=== PATIENT | female | born 1955 | race American Indian/Alaskan Native ===

== ENCOUNTER 2017-08-22 11:35 | Emergency (ER) | payer BC, OTHER ==
[2017-08-22 12:04] VITALS: BMI 32.1
--- NOTE | 2017-08-22 13:46 | RAD ---
Chest x-ray single frontal view History: Shortness of breath. Comparison: None available. Findings: No focal infiltrate or effusion. Right apical pleural thickening. Heart size within normal limits. Impression: No focal infiltrate or effusion.
[2017-08-22 14:17] LABS: BASO % 0.8 % (0.0-2.0); EOS % 0.6 % (0.0-4.0); HEMOGLOBIN 13.7 g/dL (11.0-16.0); LYMPH # 1.8 K/uL (1.0-4.3); LYMPH % 35.1 % (20.0-40.0); MEAN CELL VOLUME 89.3 fL (81.0-99.0); MEAN CORPUSCULAR HEMOGLOBIN 30.5 pg (27.0-31.0); MEAN CORPUSCULAR HGB CONC 34.2 g/dL (33.0-37.0); MEAN PLATELET VOLUME 8.4 fL (7.2-11.7); MONO # 0.4 K/uL (0.0-0.8); MONO % 8.3 % (0.0-10.0); NEUT # 2.8 K/uL (1.8-7.0); NEUT % 55.2 % (50.0-75.0); RBC 4.48 Mil/uL (3.80-5.20); RED CELL DISTRIBUTION WIDTH 14.4 % (11.5-14.5); WHITE BLOOD COUNT 5.1 K/uL (4.8-10.8)
[2017-08-22 14:30] LABS: ALB/GLOB RATIO 1.2 (1.0-2.1); ALBUMIN 4.3 g/dL (3.5-5.0); ALT/SGPT 30 U/L (9-52); AST/SGOT 25 U/L (14-36); BLOOD UREA NITROGEN 9 mg/dL (7-17); CALCIUM 9.8 mg/dl (8.6-10.4); GFR AFRICAN-AMERICAN > 60; GFR NON-AFRICAN AMERICAN > 60
[2017-08-22 14:44] VITALS: O2SAT 100
[2017-08-22] MEDS ORDERED: DiphenhydrAMINE 50 mg/ml Inj IVP STA (14:48)
[2017-08-22] MEDS ORDERED: Sodium Chloride 0.9% 1,000 ML IV ONE (14:48)
[2017-08-22] MEDS ORDERED: DiphenhydrAMINE 50 mg/ml Inj ONE (16:06)
[2017-08-22] MEDS ORDERED: Sodium Chloride 0.9% 1,000 ML ONE (16:06)
--- NOTE | 2017-08-22 17:04 | C.PDOC ---
History Of Present Illness 62-year-old female, presents to the emergency department stating that over the past several days, she has been feeling dizziness which she is unable to describe, and is associated with feeling of shortness of breath and chest pain, for the past week. Patient states that her dizziness worsened while at physical therapy today, prompting her visit to ED for evaluation. She denies fever, cough , numbness/weakness, nausea/vomiting or any other associated symptoms. No other complaints at this time. Time Seen by Provider: 08/22/17 12:34 Chief Complaint (Nursing): Chest Pain History Per: Patient History/Exam Limitations: no limitations Onset/Duration Of Symptoms: Days Current Symptoms Are (Timing): Still Present Past Medical History Reviewed: Historical Data, Nursing Documentation, Vital Signs Vital Signs: Last Vital Signs Temp 98.3 F 08/22/17 17:24 Pulse 68 08/22/17 17:24 Resp 20 08/22/17 17:24 BP 140/73 08/22/17 17:24 Pulse Ox 100 08/22/17 18:52 - Medical History PMH: Asthma (never takes meds), Diabetes, Gastritis, HTN, Hypercholesterolemia, Seizures - [facility] Procedures CLOSED ENDOSCOPIC BIOPSY OF LARGE INTESTINE (06/29/01) LAPAROSCOP LYSIS-PERITONEAL ADHES (07/19/01) LAPAROSCOP UNILAT SALPINGO-OOPHORECTOMY (07/19/01) OTHER LOCAL DESTRUC SKIN (09/24/99) Family History: States: No Known Family Hx - Social History Hx Tobacco Use: No Hx Alcohol Use: No Hx Substance Use: No - Immunization History Hx Tetanus Toxoid Vaccination: No Hx Influenza Vaccination: Yes Hx Pneumococcal Vaccination: No Review Of Systems Except As Marked, All Systems Reviewed And Found Negative. Constitutional: Negative for: Fever, Weakness, Malaise Cardiovascular: Positive for: Chest Pain. Negative for: Palpitations Respiratory: Positive for: Shortness of Breath Gastrointestinal: Negative for: Nausea, Vomiting, Abdominal Pain Musculoskeletal: Negative for: Neck Pain, Back Pain Neurological: Positive for: Dizziness. Negative for: Weakness, Numbness, Headache Physical Exam - Physical Exam Appears: Non-toxic, No Acute Distress Skin: Warm, Dry, No Rash Head: Atraumatic, Normacephalic Eye(s): bilateral: Normal Inspection, PERRL, EOMI Ear(s): Bilateral: Normal Nose: Normal Oral Mucosa: Moist Lips: Normal Appearing Throat: No Erythema, No Exudate Neck: Normal ROM, Supple Chest: Symmetrical Cardiovascular: Rhythm Regular, No Friction Rub, No Murmur Respiratory: Normal Breath Sounds, No Accessory Muscle Use Gastrointestinal/Abdominal: Soft, No Tenderness Back: Normal Inspection, No CVA Tenderness, No Vertebral Tenderness, No Paraspinal Tenderness Extremity: Normal ROM, No Swelling Neurological/Psych: Oriented x3, Normal Speech, Normal Motor Gait: Steady ED Course And Treatment - Laboratory Results Result Diagrams: 08/22/17 14:09 08/22/17 14:09 ECG: Interpreted By Me, Viewed By Me ECG Rhythm: Sinus Rhythm Rate From EC O2 Sat by Pulse Oximetry: 100 (RA) Pulse Ox Interpretation: Normal Medical Decision Making Medical Decision Making: Plan: * EKG * CMP, Trop * CBC, D-Dimer * Chest X-Ray * Benadryl, Reglan, IVFs * Reassess and Disposition On re-exam, the patient reports improvement of symptoms. Lungs are CTA, heart is RRR, abdomen is soft, non-tender and patient is tolerating PO well. Ambulatory in the ED with steady gait. Follow up with the medical doctor/clinic 1-2 days. Return if worsened. Disposition - Disposition Referrals: Arturo Phillips MD [Medical Doctor] - Disposition: HOME/ ROUTINE Disposition Time: 17:17 Condition: GOOD Additional Instructions: Follow up with the medical doctor/clinic 1-2 days. Return if worsened. Prescriptions: Metoclopramide [Reglan] 1 tab PO TID PRN #25 tab PRN Reason: Nausea/Vomiting Instructions: Dizziness (ED) Forms: [employer] (Irish) - Clinical Impression Clinical Impression: Chest discomfort, Dizziness - Scribe Statement The provider has reviewed the documentation as recorded by the Scribe (Yelena Schultz) All medical record entries made by the Scribe were at my direction and personally dictated by me. I have reviewed the chart and agree that the record accurately reflects my personal performance of the history, physical exam, medical decision making, and the department course for this patient. I have also personally directed, reviewed, and agree with the discharge instructions and disposition.
[2017-08-22 17:25] VITALS: BP 140/73; PULSE 68; RESP 20; TEMP 98.3
--- NOTE | 2017-08-24 16:35 | CARD ---
APPROVED REPORT EKG Measurement Heart [id number] <Conclusion> Normal sinus rhythm Normal ECG
== END 2017-08-22 18:02 | disposition home or self-care (01) ==
LOC: C.ER 11:35
DX: R42 Dizziness and giddiness (principal); R07.89 Other chest pain
CPT/HCPCS: 71045; 80053; 84484; 85025; 85378; 93005; 96361; 96374; 99285; J2765; J7040

== ENCOUNTER 2017-12-02 06:18 | Day surgery (SDC) | payer OTHER, BC ==
--- NOTE | 2017-12-02 07:19 | CP.PCM.CON ---
History of Present Illness - History of Present Illness History of Present Illness: Pt is a 62 yo f scheduled for shoulder sx with radha hernandez presents with peristent cough. As per the pt, shes had a cough for a week + congestion. Denies fever/n/v. Pt reports everyone in her household is sick. She was evaluated by her PCP who prescribed z-pack and promethazine, however she was unable to finish abx. At this time, procedure will be rescheduled. Pt will follow up with PCP prior to re-scheduling. Past Patient History - Past Medical History & Family History Past Medical History?: Yes - Past Social History Smoking Status: Never Smoked - CARDIAC Hx Hypercholesterolemia: Yes Hx Hypertension: Yes - PULMONARY Hx Respiratory Disorders: Yes Hx Asthma: Yes (20 yrs. ago. No longer on med.) - NEUROLOGICAL Hx Neurological Disorder: Yes Hx Dizziness: Yes Other/Comment: Had episode of dizziness om 08/22/17. Was seen in ED with no significant findings. - HEENT Hx HEENT Problems: No - RENAL Hx Chronic Kidney Disease: No - ENDOCRINE/METABOLIC Hx Endocrine Disorders: Yes Hx Diabetes Mellitus Type 2: Yes - HEMATOLOGICAL/ONCOLOGICAL Hx Blood Disorders: No - INTEGUMENTARY Hx Dermatological Problems: Yes Other/Comment: Mass left breast - MUSCULOSKELETAL/RHEUMATOLOGICAL Hx Musculoskeletal Disorders: Yes (RIGHT SHOULDER IMPINGEMENT) Other/Comment: Left Rotator cuff repair - GASTROINTESTINAL Hx Gastrointestinal Disorders: Yes Hx Gastritis: Yes - GENITOURINARY/GYNECOLOGICAL Hx Genitourinary Disorders: Yes (HX FIBROID UTERUS) - PSYCHIATRIC Hx Psychophysiologic Disorder: No Hx Substance Use: No - SURGICAL HISTORY Hx Surgeries: Yes Hx Breast Biopsy: Yes (Left breast) Hx Hysterectomy: Yes Hx Orthopedic Surgery: Yes (Left rotator cuff repair) Hx Tubal Ligation: Yes Other/Comment: lt breat lumpectomy - ANESTHESIA Hx Anesthesia: Yes Hx Anesthesia Reactions: Yes (VOMITTING) Hx Malignant Hyperthermia: No Has any member of the family had a problem w/ anesthesia?: No Meds Allergies/Adverse Reactions: Allergies Allergy/AdvReac Type Severity Reaction Status Date / Time codeine Allergy Intermediate RASH Verified 08/22/17 11:47 meperidine [From Demerol] Allergy Intermediate RASH Verified 08/22/17 11:47 Penicillins Allergy Intermediate RASH Verified 08/22/17 11:47 Sulfa (Sulfonamide Allergy Intermediate RASH Verified 08/22/17 11:47 Antibiotics)
== END 2017-12-02 08:15 | disposition home or self-care (01) ==
LOC: C.SDS 06:18
PROVIDERS: ATTEND Student in an Organized Health Care Education/Training Program
DX: Z53.8 Procedure and treatment not carried out for other reasons (principal); S46.811D Strain of other muscles, fascia and tendons at shoulder and upper arm level, right arm, subsequent encounter; S43.431D Superior glenoid labrum lesion of right shoulder, subsequent encounter; M75.31 Calcific tendinitis of right shoulder; M75.41 Impingement syndrome of right shoulder; M75.21 Bicipital tendinitis, right shoulder

== ENCOUNTER 2018-01-06 05:45 | Day surgery (SDC) | payer OTHER, BC ==
[2018-01-06] MEDS ORDERED: Midazolam 2 MG/2 ML VIAL ONE (08:04)
[2018-01-06] MEDS ORDERED: Propofol 10 mg/ml Inj (20 ML) ONE (08:04)
[2018-01-06] MEDS ORDERED: Succinylcholine Chloride 20 mg/ml Syr (5 ml) IV ONE (08:05)
[2018-01-06] MEDS ORDERED: Rocuronium 10 mg/ml (5 ml) ONE ×2 (08:05→09:57)
[2018-01-06] MEDS ORDERED: Clindamycin 600mg/50ml NS 0 MG/0 ML BAG IVPB ONE (08:06)
[2018-01-06] MEDS ORDERED: Neostigmine Methylsulfate 3mg/3ml Syringe IV ONE ×2 (11:14→11:28)
[2018-01-06] MEDS: HYDROmorphone 0.5 mg/0.5 ml ISec IVP PRN ×3 (11:57→12:57)
[2018-01-06] MEDS ORDERED: Bupivacaine HCl 0.5% PF (30 ml) Inj ONE (12:53)
[2018-01-06] MEDS ORDERED: Lactated Ringer's 1,000 ML IV ONE (13:00)
--- NOTE | 2018-01-06 13:14 | PCM.ANESB1 ---
Interscalene Block - Brachial Plexus Date of Procedure: 01/06/18 Anesthesiologist: Susanne Pre-Procedure Diagnosis: Right labral tear Post-Procedure Diagnosis: Right labral afua Procedure Performed: Interscalene Block of Brachial Plexus Right - Procedure Interscalene Block of Brachial Plexus: This procedure was explained to the patient that it is for post-operative pain management. Consent was obtained after a thorough discussion with the patient regarding the benefits and possible complications of local anesthetic block of the Brachial Plexus at the Interscalene area. The patient was brought to the Operating Room and standard monitors were applied. Time out was held with the circulating nurse to confirm the correct surgery and appropriate block. After applying Oxygen by nasal cannula and administering IV Sedation, the patient's head was gently rotated away from the operative shoulder and the anterior scalene groove was carefully palpated. The ultrasound transducer was then applied to the skin in the transverse plane and the brachial plexus was visualized lateral to the carotid artery and in between the anterior and middle scalene muscles. After identification,the anterior lateral portion of the neck was prepped with Betadine solution three times and Lidocaine 1% was injected subcutaneously for topical analgesia. At this point, a # 22 gauge Stimuplex 2 inches insulated needle was inserted into the interscalene groove and directed in a caudal and midline direction. The needle was inserted lateral to the ultrasound transducer in-plane towards the brachial plexus in a [id number] direction. Needle advancement was performed carefully under direct ultrasound visualization. After repeated negative aspiration, 20 mL of 0.25% bupivicaine were injected. Under ultrasound guidance the local anesthetics were observed surrounding the roots of the brachial plexus. The needle was removed intact and sterile dressing was applied. The patient had stable vital signs, was conscious and in no apparent distress. The patient tolerated the interscalene block of the bracheal plexus well with stable vital signs
[2018-01-06 20:30] VITALS: RESP 20
[2018-01-06] MEDS: Dextrose 5%/0.9% NS 1,000 ML IV SCH (21:48)
[2018-01-07] MEDS: Dextrose 5%/0.9% NS 1,000 ML IV SCH (08:16)
[2018-01-07 08:29] VITALS: BP 134/79; PULSE 103; TEMP 98.5; O2SAT 97
[2018-01-07] MEDS ORDERED: Oxycodone/Acetaminophen 5/325 mg Tab PO PRN (10:57)
--- NOTE | 2018-01-07 14:47 | CP.PCM.PN ---
Subjective - Date & Time of Evaluation Date of Evaluation: 01/07/18 Time of Evaluation: 14:47 - Subjective Subjective: PT CLEARED FOR D/C HOME TODAY PER ORTHO AND DR. BURTON. SEE BELOW FOR ALL D/C INSTRUCTIONS. RETAIL SHIFT SUPERVISOR DISCUSSED DC AT LENGTH WITH PT. RX PROVIDED FOR PAIN MEDS. NO FURTHER ORDERS. -FOLLOW UP WITH DR. SIDDIQUI IN THE OFFICE WITHIN 1 WEEK---PLEASE MAKE SURE YOU SEE HIM BY TUESDAY, January THE LATEST---CALL OFFICE ON TUESDAY TO MAKE YOUR APPOINTMENT. -FOLLOW UP WITH YOUR GENERAL HEALTHCARE PROVIDER, DR. DAMON, IN THE OFFICE WITHIN 2-3 WEEKS. -CONTINUE YOUR HOME MEDICATIONS USUAL. -FOR MILD TO MODERATE PAIN YOU MAY TAKE REGULAR STRENGTH TYLENOL (325 MG STRENGTH TABLETS)---TAKE 2 TABLETS (650 MG) BY MOUTH EVERY 6 HOURS NEEDED FOR PAIN. -PRESCRIBED TO YOU IS TRAMADOL---THIS PAIN MEDICINE MAY GET YOU SLEEPY AND DIZZY. TAKE AT BEDTIME ONLY IF YOU NEED IT FOR SEVERE PAIN. -USE THE ICE MACHINE DAILY AND NEEDED--THIS WILL HELP WITH ANY PAIN AND SWELLING TO YOUR SHOULDER. -KEEP THE DRESSING ON YOUR SHOULD ON (KEEP DRY AND CLEAN) UNTIL YOU SEE DR. SIDDIQUI IN THE OFFICE. -IF YOU HAVE CHILLS/FEVER, PAIN UNRELIEVED BY MEDICINE, TENDERNESS WITH REDNESS , WARMTH AND PUS FROM SURGICAL SITE, NOTIFY YOUR SURGEON RIGHT AWAY. HE WILL LIKELY SEND YOU TO THE ER FOR FURTHER TREATMENT. -IF YOU HAVE ANY FURTHER CONCERNS OR QUESTIONS, CONTACT DR. SIDDIQUI'S OFFICE. Objective - Vital Signs/Intake and Output Vital Signs (last 24 hours): Temp Pulse Resp BP Pulse Ox 98.5 F 103 H 20 134/79 97 01/07/18 08:27 01/07/18 08:27 01/07/18 08:27 01/07/18 08:27 01/07/18 08:27 Intake and Output: 01/07/18 01/07/18 06:59 18:59 Intake Total 75 Balance 75 - Medications Medications: Current Medications Dextrose/Sodium Chloride (Dextrose 5%/0.9% Ns 1000 Ml) 1,000 mls @ 75 mls/hr IV .[id number] LIANNA Last Admin: 01/07/18 08:16 Dose: Not Given Oxycodone/Acetaminophen (Percocet 5/325 Mg Tab) 2 tab PO Q4H PRN PRN Reason: Pain, moderate (4-7) Stop: 01/10/18 10:58
--- NOTE | 2018-01-30 04:59 | PCM.SURG1 ---
Surgeon's Initial Post Op Note - Surgeon's Notes Surgeon: Tere Hanks MD Glass Blower: Alex Garrido PA-C Type of Anesthesia: General Endo, Block [facility] Pre-Operative Diagnosis: Right shoulder. #1 SLAP / labral tear. #2 partial rotator cuff tear. #3 biceps LH possible partial tear/ tendonitis. #4 subacromial bursitis. #5 subacromial impingement Operative Findings: Right shoulder. #1 SLAP / labral tear (degenerative/ complex tear not amenable to repair). #2 partial rotator cuff tear (very friable tissue overall with no full thickness tear seen). #3 biceps LH confirmed partial tear/ tendonitis. #4 subacromial bursitis. #5 subacromial impingement. 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 #7 synovitis. #8 significant adhesions and stiffness Post-Operative Diagnosis: Right shoulder. #1 SLAP / labral tear (degenerative/ complex tear not amenable to repair). #2 partial rotator cuff tear (very friable tissue overall with no full thickness tear seen). #3 biceps LH confirmed partial tear/ tendonitis. #4 subacromial bursitis. #5 subacromial impingement. 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 #7 synovitis. #8 significant adhesions and stiffness Operation Performed: Right shoulder: #1 Open biceps LH subpect tenodesis. #2 Arthroscopic extensive debridement (including debridement partial RTC tear/ biceps tenotomy/ debridement deg SLAP tear). #3 Arthroscopic chondroplasty & microfracture glenoid. #4 Arthroscopic extensive synovectomy. #5 Arthroscopic subacromial decompression w/ acromioplasty. #6 Arthroscopic intra-articular PRP injection. #7 manipulation under anesthesia. #8 Arthroscopic lysis of adhesions Specimen/Specimens Removed: specimen= none. complications= none. implants= Arthrex biocomposite biceps tenodesis screw 7mmx19.5mm Estimated Blood Loss: EBL {In ML}: 10 Blood Products Given: N/A Drains Used: No Drains Post-Op Condition: Good Date of Surgery/Procedure: 01/06/18 Time of Surgery/Procedure: 10:00
--- NOTE | 2018-03-16 05:51 | OP ---
Copied To: Tere Hanks MD Attending MD: Tere Hanks MD PROCEDURE DATE: 01/06/2018 PREOPERATIVE DIAGNOSES: Right shoulder: 1. SLAP/labral tear. 2. Partial rotator cuff tear. 3. Biceps long head possible partial tear/tendonitis. 4. Subacromial bursitis. 5. Subacromial impingement. POSTOPERATIVE DIAGNOSES: Right shoulder: 1. SLAP/labral tear (degenerative/complex circumferential tear, not amenable to repair). 2. Partial rotator cuff tear (friable tissue overall with no full thickness defect seen). 3. Biceps long head confirmed partial tear with tendinopathy. 4. Subacromial bursitis. 5. Subacromial impingement. 6. Chondral injury/defect/grade IV chondromalacia glenoid. 7. Synovitis. 8. Significant adhesions and stiffness. PROCEDURES: Right shoulder: 1. Open biceps long head subpectoralis tenodesis. 2. Arthroscopic extensive debridement (including debridement of partial rotator cuff tear/biceps tenotomy/degenerative SLAP tear debridement). 3. Arthroscopic chondroplasty and microfracture glenoid. 4. Arthroscopic extensive synovectomy. 5. Arthroscopic subacromial decompression with acromioplasty. 6. Arthroscopic intraarticular platelet-plasm rich injection. 7. Manipulation under anesthesia. 8. Arthroscopic lysis of adhesions. SURGEON: Tere Hanks MD. LAST PUTTER AWAY: Alex Garrido PA-C. JUSTIFICATION OF LAST PUTTER AWAY: Alex Garrido is a certified physician quality assurance assistant whose skilled surgical services were an absolute necessity for successful completion of the procedure as he provided skilled surgical assistance with positioning of the patient, positioning of the extremity, management of surgical malin, retraction of neurovascular structures, preparation of proximal biceps tendon tissue and preparation of proximal humerus bone for docking site and tenodesis, handling of arthroscopic equipment and preparation of glenoid for microfracture as well as facilitating microfracture hole placement, extensive debridement and subacromial decompression with acromioplasty, wound closure, fitting and placement in shoulder immobilizer sling. Alex Garrido was present for the entire case who was an absolute necessity for successful completion of the procedure. ANESTHESIA: General endotracheal anesthesia with a postop regional nerve block placed by anesthesia staff in PACU. SPECIMENS: None. COMPLICATIONS: None. ESTIMATED BLOOD LOSS: 10 mL. DRAINS: None. DISPOSITION: The patient was extubated and transferred to PACU in stable condition having tolerated the procedure well. IMPLANTS: Arthrex biocomposite biceps tenodesis screw 7 mm x 19.5 mm size. INDICATIONS FOR SURGERY: The patient is a 62-year-old female who is [id number], with a past medical history significant for hypertension, who presents to the office for the first time under my care on 01/07/2015 with right shoulder, right wrist, cervical spine/neck pain since an injury at work on 12/27/2014. 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 While she was at work on 12/27/2014, she was injured resulting in immediate 10/10 pain, localized to the right shoulder, right wrist and neck. She was seen at the ER at [facility] where she was determine to have multiple sprains and contusions and told to follow up with an orthopedic surgeon as an outpatient. Since then, she has been under my care for her right shoulder for which she has undergone multiple cortisone mixture injections localized to the bicipital groove in the subacromial space, totally 5 injections in shoulder that resultant in near complete resolution of pain after each injection that would last only a few weeks. She has undergone MRI more than once. MRI of the right shoulder done at [facility] on 02/11/2015 was read as, 1. Increased signal seen within and at the bursal aspect of the distal supraspinatus tendons suggestive for mild partial bursal surface fraying/tearing with associated moderate tendinopathy, no gross full thickness defect seen. 2. Mild distal infraspinatus tenopathy with articular surface fraying. No gross full thickness defect seen. 3. Degenerative fraying of the posterior, inferior as well as posterior superior labrum. 4. Moderate acromioclavicular joint space degenerative changes with joint space narrowing, subchondral edema, and bony hypertrophy. After reviewing the initial MRI with her, and starting conservative treatments, she did not have any significant improvement or progress over the next 3 years. Finally, after failing over 5 cortisone mixture injections with 2 injections at each session, localized to the bicipital groove in the subacromial space and 3 years of physical therapy, antiinflammatory medication and antiinflammatory cream, she was indicated for surgery. She underwent a repeat MR arthrogram of the right shoulder done on 04/04/2017 at [facility] which was read as, 1. Thinning and fraying with increased signal seen within and at the undersurface of the distal supraspinatus tendon suggestive for mild partial articular surface fraying with an associated moderate tendinopathy. No growth full thickness defect, tendon retraction, or muscle atrophy. 2. Mild distal infraspinatus tendinopathy with mild articular surface fraying. No growth full thickness defect seen. 3. Mild distal subscapularis tendinopathy. 4. Proximal portion of long headed biceps tendon appears somewhat tendon, attenuated, but otherwise maintained within the bicipital grove. 5. Evaluation of the glenoid labrum demonstrates fraying with increased signal seen within the superior labrum at the mid to posterior accept suggestive for the degenerative fraying and/or partial tearing. Additional fraying with increased signal seen at the undersurface of the anterior labrum at its mid to inferior accept also suggestive for mild partial tearing. Additional increased signal noted at the level of the posterior inferior labrum also suggestive for degenerative partial tearing. 6. Moderate acromioclavicular joint space degenerative changes with joint space narrowing, subchondral edema, and bony hypertrophy. After multiple discussions with the patient and obtaining authorization with the Department of Labor/Workmen's Comp for the procedure, the patient was finally indicated for surgery to the right shoulder. She was indicated for right shoulder arthroscopic extensive debridement, possible SLAP repair, subacromial decompression with acromioplasty, possible rotator cuff repair, PRP injection, and open biceps long head tenontitis. The risks, benefits, and alternatives of the procedure were discussed at length with the patient with the risk including but not limited to infection, neurovascular damage, failure of repair, failure of implants, failure of fixation, need for further surgery, chondrolysis, accelerated degenerative wear, stiffness, need for multiple procedures, development of chronic pain and disability, development of blood clots including DVT and PE, anesthesia reaction including . After answering all of her questions, the patient stated that she understood the risks and wished to proceed with surgery. We were able to successfully obtain authorization from Department of Labor for the procedure, and the procedure was scheduled at [facility] on 01/06/2018. She watched surgical animation videos and diagnoses animation videos and stated that she had a good understanding of the procedure as well as the multiple parts of her diagnoses. I reviewed at length personally the postop rehabilitation protocol, and she stated that she understood the need for compliance at the rehab protocol in order to maximize the change of having successful outcome after surgery. She was under the care of Dr. Nazario Moseley for her cervical spine who was treating her with injections as well. She is under the care of Dr. Yeni Son for her right wrist which had shown some signs of improvement over the past couple of years, but did not completely resolve as well. Again, she had exhausted all conservative treatment over the past 3 years under my care including cortisone mixture infection to the subacromial space and bicipital groove, 5 in total that would last approximately 4 weeks and then return to baseline level of pain and dysfunction. The patient was unable to perform any overhead activity, she was unable to lift anything with the arm. She was unable to sleep on her right side, being right-hand dominate, this is a significant negative impact on her quality of her life, and she was very frustrated with the lack of progress with conservative treatments. PROCEDURE IN DETAIL: The patient was identified in the preoperative holding area and the right shoulder was marked for surgery. Once again, as described above, the risks, benefits, and alternatives of the procedure were discussed at length with the patient and informed consent was obtained. After a brief discussion with the anesthesia staff, she was brought to the operating room. An initial time-out was done with the surgeon, anesthesia staff, OR staff, all in agreement with the patient, procedure being done and extremity being operated on. With the beach-chair position and in the supine position, general anesthesia was administered without difficulty or complication, and examination under anesthesia was then carried out. EXAMINATION UNDER ANESTHESIA: No warmth, no erythema, no swelling, skin intact, limited range of motion to 120 degrees forward flexion, abduction to 100 degrees, internal rotation to S1, external rotation to 10 degrees. No evidence of instability. CONTINUATION OF PROCEDURE: A final time-out was done with the surgeon, anesthesia staff, OR staff, all in agreement with the patient, procedure being done, extremity being operated on. Manipulation under anesthesia: A manipulation under anesthesia was then carried out establishing full range of motion compared to contralateral shoulder without difficulty. There were audible pops of the scar tissue breaking up during the manipulation. We then proceeded with the surgical part of the procedure. The right shoulder was prepped and draped in standard sterile fashion, 50 mL normal saline were used to insufflate the knee joint through a posterior approach with the spinal needle. At that point in time, a posterior protal was created with stab incision through skin down to subcutaneous tissues, down to the level of the capsule. A blunt arthroscopic trocar and cannula were inserted into the glenohumeral joint. The glenohumeral joint was insufflated with arthroscopic fluid, and the arthroscopic camera was inserted. With the use of spinal needle localization, the anterior protal was created with stab incision through skin down to subcutaneous tissues down to the level of the capsule. An accessory arthroscopic cannula was then inserted, and the shoulder joint was copiously irrigated for better visualization and removal of synovial debris. With the use of arthroscopic probe, a diagnostic arthroscopy was then carried out. DIAGNOSTIC ARTHROSCOPY: Attention was first turned towards the rotator cuff and immediately seen was some fraying and tendinopathy tissue with significant synovitis overlying the rotator cuff throughout its course intraarticular with intact attachment of the rotator cuff tendons at the greater tuberosity. Attention was then turned towards the subscapularis tendon where again was seen some partial tearing and tendinopathy with no full thickness tears. Attention was then turned towards the glenohumeral joint proper, and immediately seen at the superior aspect of the humeral head was what appeared to be a full thickness zone of cartilage injury, possibly from an impact versus a Hill-Sachs or similar type lesion, although there was no reported history of dislocation. The glenoid exhibited significant cartilage injury at its central aspect as well with a full thickness zone of injury, measuring approximately 4 mm x 4 mm down to subchondral bone. Throughout the entire glenohumeral compartment, and throughout the entire shoulder joint, there was significant hypertrophic synovial lining and synovitis with inflamed tissue throughout. The biceps tendon was carefully evaluated and found to have confirmed partial tearing throughout is course intraarticular, and at the anchor as well as evidence of significant tendonitis and tendinopathy. The axillary pouch also had significant synovitis and inflamed synovial tissue. The labrum was carefully evaluated with the arthroscopic probe and found to have complex tearing with no lizabeth detachment of the labrum representing a circumflex SLAP tear that was complex and fibrillated with no detachment and no evidence or indication for a SLAP repair. CONTINUATION OF PROCEDURE: Arthroscopic extensive debridement: With the use of the arthroscopic shaver and radiofrequency ablation, an extensive debridement of the glenohumeral joint was carried out, including debridement of the partial rotator cuff tears, a biceps tenotomy, debridement of the degenerative/complex labral tearing. With the arthroscopic shaver and radiofrequency ablation, the complex SLAP tear was debrided down to establish a smooth contour throughout its circumferential aspect. The complex fibrillation was resected and smooth out and the resulting smooth contour to the labrum was established. The rotator cuff as described above displayed partial tearing and tendinopathy with overlying inflamed tissue that was carefully debrided with the use of the arthroscopic shaver and radiofrequency ablation. With the use of scissor, the biceps long head tendon underwent a tenotomy releasing the biceps tendon from an intraarticular position with the resulting stump debrided back to the biceps, anchor, and labrum. The biceps tendon will undergo a future biceps tenodesis through an open approach. Arthroscopic Extensive synovectomy and lysis of adhesions: Once the extensive debridement was carried out to satisfaction, attention was then turned towards performing an extensive synovectomy as well. The synovial lining of the entire shoulder joint throughout all of its compartments was completely inflamed, and with the use of arthroscopic shaver and radiofrequency ablation, an extensive synovectomy was carried out while maintain good hemostatic. This was done beyond to what is considered usual and customary for better visualization during arthroscopic shoulder surgery. The significant amount of surgical time was dedicated to these synovectomy due to the amount of the inflamed tissue and difficulty with establishing hemostasis and visualization. Once the extensive synovectomy was carried out with satisfaction and all intraarticular treatment of the glenohumeral joint was established, we then turned our attention to the subacromial space. Arthroscopic chondroplasty and microfracture glenoid and chondroplasty humeral head: with the use of the arthroscopic shaver and radiofrequency ablation, a chondroplasty of the glenoid zone of injury was carried out removing the unstable fragments of cartilage. The arthroscopic curette was used to establish an intact rim of good cartialge around the full thickness zone of injury. The microfracture awls were used to place 1 microfracture hole with good bloody return at the center of the exposed subchondral bone at the cartilage full thickness injury of the glenoid. A successful microfracture was carried out to the glenoid injury. Arthroscopic subacromial decompression with acromioplasty: The arthroscopic camera was inserted to the posterior portal and to the subacromial space and immediately visualized with thickened hypertrophic subacromial bursa and inflammation. With the use of the spine needle, a lateral portal was created to allow access to the subacromial space. The arthroscopic shaver and radiofrequency ablation were used to perform a subacromial decompression and bursectomy. This was done while maintaining good hemostasis down to the level of the rotator cuff tendon. With the use of the arthroscopic probe, the rotator cuff was evaluated once again to ensure that there was no full thickness defect seen. It is of note that the quality of the rotator cuff tendon was very poor with friable tissue that even in touching the rotator cuff tendon with a blunt instrument resulted in friable rotator cuff tissue falling apart and giving way. Under these circumstances, care was taken to perform the bursectomy without further injuring the rotator cuff tendon and removing as much inflammation as possible. It was clear that the rotator cuff had significant tendinopathy and inflammation within its substance and with significant pain generated for the patient. An impingement point from the overlying acromion was identified, and with the use of arthroscopic ziggy, an acromioplasty was carried out, opening of the subacromial space, removing the subacromial impingement on the rotator cuff below. Hopefully, this will help the patient's inflammation and tendinopathy of the rotator cuff. Once the subacromial treatment was completed at the satisfaction, we then proceed with the PRP injection with the help of anesthesia staff. Arthroscopic subacromial space and intraarticular PRP injection: With the help the anesthesia staff, PRP was obtained and a total of 10 mL from a peripheral venous stick. The venous blood was spun in the [employer] centrifuge yielding 10 mL of PRP in total, 5 mL of PRP were injected under direct visualization intraarticularly and 5 mL of PRP were injected under direct visualization at the subacromial space over the rotator cuff tendon to aide with rotator cuff healing. Once the PRP infection was completed, the arthroscopic portals were then reapproximated with 3-0 Vicryl suture for deep tissue followed by 3-0 Monocryl suture for skin. Attention was then turned towards the open biceps tenodesis. Open long head biceps subpectoralis tenodesis: A 3 cm incision was made in line with the long axis of the arm just distal to the pectoralis major crossing the top of the axillary crease. Incision was made to skin down to the subcutaneous tissue and maintaining good hemostasis down to the level of the deltopectoral fascia. Deltopectoral fascia was sharply incised and blunt dissection was carried out down to the proximal humerus where the long head biceps tenon was encountered though digit palpation and brought into the surgical field successfully. The proximal portion of the biceps tendon was carefully evaluated and found to have severe tendinopathy. The tissue was resected and optimal tensioning was obtained with the elbow and flexion to locate the optimal biceps tenodesis location at the proximal humerus. The overlying soft tissue was debrided, and a K-wire was advanced through the near cortex and embedded into the far cortex. A 7 mm cannulated reamer was then passed over the K-wire and the near cortex was reamed creating a 7 mm socket. The K-wire and reamer were removed. A whip stitch was placed using a #2 Fiber loop suture from [employer] at the proximal 2 cm of the biceps tendon. One end of the suture that was whip stitched to the tendon was passed through the screw and the biceps tenodesis screw and the tendon were docked into the biceps tenodesis docking site successfully with good fixation and stability achieved. A 7 mm biocomposite biceps tenodesis screw was used from [employer]. A free needle was then used to pass one end of the suture through the tendon and this was tied down to secondary fixation for the biceps tenodesis. Once this was completed in satisfaction and the construct was tested and a successful biceps tenodesis had been established, the wound was then copiously irrigated and good hemostatic was achieved. Deep tissue was reapproximated with #1 Vicryl suture, followed by 2-0 Vicryl suture for subcutaneous, followed by 3-0 Monocryl suture for skin. Sterile dressings were applied, and then the right shoulder was fitted and placed in a shoulder immobilizer sling. The patient was then brought into the supine position and released from the beach-chair position and transferred back to her stretcher where she was extubated successfully and transferred to PACU in stable condition. JUSTIFICATION FOR CODING AND BILLIN. A successful open biceps tenodesis was carried out successfully, and therefore, was coded and billed. 2. Arthroscopic extensive debridement was carried out successfully, and therefore, was coded and billed. 3. Arthroscopic subacromial decompression with acromioplasty was carried out successfully, and therefore, was coded and billed. 4. Arthroscopic extensive synovectomy was carried out successfully as an independent part of the procedure with the significant amount of surgical time dedicated to the synovectomy, and therefore, was coded and billed as there was significant inflamed and hypertrophic synovial tissue throughout all compartments of the shoulder joint. 5. Arthroscopic chondroplasty and microfracture of the glenoid was carried out successfully but it is considered inclusive to the extensive debridement, and therefore, was not coded and billed. 6. Intraarticular PRP injections as well as subacromial joint space PRP injection was carried out successfully, and therefore, was coded and billed. 7. The right arm was fitted and placed in a shoulder immobilizer sling provided by my office, and therefore, was coded and billed. The shoulder immobilizer sling was of medical necessity to protect the biceps tenodesis and to ensure and maximize extensive successful healing. DISPOSITION: The patient will be discharged home once she has recovered from anesthesia. She received a prescription for percept for pain control. She was instructed to keep the dressings the clean, dry, and intact; and keep her arm in shoulder immobilizer sling at all times. She is to strict nonweightbearing to the right upper extremity. She will contact me directly if there are any question or concerns. She will follow up in my office within one week and already has her postoperative appointment set up at [facility]. Tere Hanks MD [email or web address]
== END 2018-01-07 15:30 | disposition home or self-care (01) ==
LOC: C.SDS 05:45 → C.6T 18:16 → C.SDS 01-07 15:30
PROVIDERS: ATTEND Student in an Organized Health Care Education/Training Program
DX: S46.811D Strain of other muscles, fascia and tendons at shoulder and upper arm level, right arm, subsequent encounter (principal); S43.432D Superior glenoid labrum lesion of left shoulder, subsequent encounter; M75.51 Bursitis of right shoulder
CPT/HCPCS: 23430; 29807; 29821; 29823; 82948; C1713; J0131; J0171; J1100; J1170; J2001; J2250; J2405; J2704; J2710; J3010; J7042; J7120

== ENCOUNTER 2018-08-17 09:37 | Outpatient (CLI) | payer OTHER, BC, MEDICARE | END 2018-08-17 09:38 | disposition home or self-care (01) | LOC: C.MRIC 09:37 ==

== ENCOUNTER 2018-11-16 08:10 | Outpatient (CLI) | payer OTHER, MEDICARE, BC | END 2018-11-16 08:11 | disposition home or self-care (01) | LOC: C.LAB 08:10 ==